=== PATIENT | female | born 1980 | race Caucasian/White ===

== ENCOUNTER 2020-11-16 17:02 | Inpatient (IN) | payer OTHER ==
[~2020-11-16] VITALS: Ht 160 cm; Wt 91.2 kg
[~2020-11-16 17:02] MED LIST: COLACE 100MG C100 MG PO; MACROBID 100 M100 MG PO; PRENATAL VITAM1 EAC6 PO
[2020-11-16 18:07] LABS: HEMOGLOBIN 12.9 gm/dl (12.3-15.3); RED BLOOD COUNT 4.41 M/UL (4.00-5.10); WHITE BLOOD COUNT 16.9 K/UL (4.5-11.0)
[2020-11-16] MEDS ORDERED: IBUPROFEN600 MG PO (18:23)
[2020-11-16] MEDS ORDERED: HYDROCODON-ACE1 EAC6 PO (18:23)
[2020-11-16] MEDS ORDERED: COLACE 100MG C100 MG PO (18:23)
[2020-11-18] MEDS ORDERED: COLACE 100MG C100 MG PO (11:32)
[2020-11-18] MEDS ORDERED: HYDROCODON-ACE1 EAC6 PO (11:32)
[2020-11-18] MEDS ORDERED: IBUPROFEN600 MG PO (11:32)
== END 2020-11-18 14:58 | disposition home or self-care (01) | DRG 788 ==
LOC: GENOP 17:02 → OB 17:39
PROVIDERS: ADMIT Obstetrics & Gynecology
PROC: 4A1HXCZ Monitoring of Products of Conception, Cardiac Rate, External Approach (ICD-10-PCS; 2020-11-16)
PROC: 10D00Z1 Extraction of Products of Conception, Low, Open Approach (ICD-10-PCS; principal; 2020-11-16 18:56)
DX: O34.211 Maternal care for low transverse scar from previous cesarean delivery (principal); Z3A.36 36 weeks gestation of pregnancy; Z37.0 Single live birth; Z20.822 Contact with and (suspected) exposure to COVID-19; O62.2 Other uterine inertia
CPT/HCPCS: 36415; 81001; 82800; 85014; 85018; 85025; 90715; C9113; J0690; J1650; J1885; J2210; J2250; J2274; J2300; J2405; J2590; J3010; J7120; U0002